=== PATIENT | female | born 1955 | race Two or more races ===

== ENCOUNTER → 2021-11-12 | Emergency (ER) | payer OTHER ==
[~2021-11-12] MED LIST: SYNTHROID137 MCG PO; WELLBUTRIN XL150 MG PO; XANAX1 MG PO; [UNRECOGNIZED DRUG - REMARK]
== END | disposition left against medical advice (07) ==
LOC: ER 15:57
DX: Z53.9 Procedure and treatment not carried out, unspecified reason (principal)

== ENCOUNTER 2021-11-15 13:00 | Outpatient (CLI) | payer OTHER | END 2021-11-15 14:00 | disposition home or self-care (01) | LOC: ASH CLINIC 13:00 | PROVIDERS: ATTEND General Practice | DX: U07.1 COVID-19 (principal) ==

== ENCOUNTER 2023-07-06 08:13 | Outpatient (CLI) | payer OTHER ==
[~2023-07-06 08:13] MED LIST changes: +ARTHRITIS PAIN150 GM TOP
== END 2023-07-06 08:22 | disposition home or self-care (01) ==
LOC: RAD 08:13
PROVIDERS: ATTEND Otolaryngology
DX: R13.13 Dysphagia, pharyngeal phase (principal); R09.89 Other specified symptoms and signs involving the circulatory and respiratory systems

== ENCOUNTER 2023-09-20 13:36 | Emergency (ER) | payer OTHER ==
[~2023-09-20] VITALS: Ht 165.1 cm; Wt 81.6 kg
[2023-09-20] MEDS ORDERED: GUAIFENESIN/DEXTROMETHORPHAN 100 MG/5 ML ML PO ONE (14:30)
[2023-09-20 14:46] LABS: HEMATOCRIT 41.9 % (36.0-45.00); HEMOGLOBIN 13.6 g/dL (12.0-15.00); MEAN CORPUSCULAR HEMOGLOBIN 22.7 pg (27.00-32.0); MEAN CORPUSCULAR HGB CONC 32.5 g/dl (32.0-36.0); PLATELET COUNT 258 K/uL (150-450); RED BLOOD COUNT 6.02 M/uL (4.00-6.00); RED CELL DISTRIBUTION WIDTH 16.4 % (11.5-14.5)
[2023-09-20 14:55] LABS: MEAN CELL VOLUME 69.7 fL (80.00-100.00)
[2023-09-20 15:11] LABS: CALCIUM 9.6 mg/dL (8.5-10.1); CREATININE SERUM 0.97 mg/dL (0.55-1.02); GFR 57.63; POTASSIUM 4.12 mEq/L (3.5-5.1)
== END 2023-09-20 16:39 | disposition home or self-care (01) ==
LOC: ER 13:36
PROVIDERS: Emergency Medicine
DX: J45.909 Unspecified asthma, uncomplicated (principal); F41.8 Other specified anxiety disorders; Z88.2 Allergy status to sulfonamides; E03.9 Hypothyroidism, unspecified; Z87.891 Personal history of nicotine dependence; Z20.822 Contact with and (suspected) exposure to COVID-19

== ENCOUNTER 2025-06-26 12:19 | Emergency (ER) | payer OTHER ==
[~2025-06-26] VITALS: Ht 170.2 cm; Wt 81.2 kg
[2025-06-26] MEDS ORDERED: COZAAR25 MG PO (13:52)
[2025-06-26] MEDS ORDERED: PRILOSEC10 MG PO (13:53)
[2025-06-26] MEDS ORDERED: BENZONATATE 200 MG CAPSULE PO ONE (14:15)
[2025-06-26] MEDS ORDERED: IPRATROPIUM BROMIDE 0.5 MG/2.5 ML AMPUL.NEB IH SCH (14:15)
[2025-06-26] MEDS ORDERED: METHYLPREDNISOLONE SOD SUCC 125 MG VIAL IV ONE (14:15)
[2025-06-26] MEDS ORDERED: LEVALBUTEROL HCL 1.25 MG/3 ML SOLUTION IH SCH (14:15)
[2025-06-26] MEDS ORDERED: CEFTRIAXONE SODIUM 2,000 MG VIAL IV ONE (14:15)
[2025-06-26] MEDS ORDERED: CEFTRIAXONE SODIUM 2,000 MG VIAL ONE (14:51)
[2025-06-26] MEDS ORDERED: METHYLPREDNISOLONE SOD SUCC 125 MG VIAL ONE (14:51)
[2025-06-26 15:27] LABS: BASO % 0.8 % (0.1-1.2); EOS # 0.27 (0.04-0.54); EOS % 5.6 % (0.7-7.0); LYMPH # 1.54 (1.18-3.74); LYMPH % 31.9 % (19.3-53.1); MEAN PLATELET VOLUME 10.30 fl (9.4-12.4); MONO # 0.59 (0.24-0.82); NEUT # 2.38 (1.56-6.13); NEUT % 49.3 % (34.0-71.1); RED CELL DISTRIBUTION WIDTH 17.8 % (11.6-14.4)
[2025-06-26] MEDS ORDERED: IPRATROPIUM BROMIDE 0.5 MG/2.5 ML AMPUL.NEB IH ONE (15:29)
[2025-06-26] MEDS ORDERED: LEVALBUTEROL HCL 0.63 MG/3 ML SOLUTION IH ONE (15:29)
[2025-06-26 15:30] LABS: MONO % 12.2 % (4.7-12.5)
[2025-06-26 15:36] LABS: ERYTHROCYTE SEDIMENTATION RATE 98 mm/hr (0-30)
[2025-06-26 16:42] LABS: COVID-19 AG NEGATIVE (NEGATIVE)
[2025-06-26] MEDS ORDERED: ALBUTEROL1.25 MG/3 IH (16:54)
[2025-06-26] MEDS ORDERED: IPRATROPIU0.2 MG/1 M IH (16:54)
[2025-06-26] MEDS ORDERED: DELSYM COUGH+C180 ML PO (16:54)
[2025-06-26] MEDS ORDERED: AZITHROMYCIN500 MG PO (16:54)
== END 2025-06-26 18:20 | disposition home or self-care (01) ==
LOC: ER 12:20
PROVIDERS: General Practice
DX: J06.9 Acute upper respiratory infection, unspecified (principal); J45.901 Unspecified asthma with (acute) exacerbation; J00 Acute nasopharyngitis [common cold]; R05.8 Other specified cough; R06.02 Shortness of breath; Z20.822 Contact with and (suspected) exposure to COVID-19; E03.8 Other specified hypothyroidism; I10 Essential (primary) hypertension; Z88.2 Allergy status to sulfonamides
CPT/HCPCS: 36415; 71046; 82803; 96365; 99283; J0696; J3490